=== PATIENT | female | born 1980 | race Caucasian/White ===

== ENCOUNTER 2022-12-21 09:02 | Emergency (ER) | payer OTHER, SELFPAY ==
[2022-12-21 09:10] VITALS: BP 137/86; PULSE 63; RESP 18; TEMP 36.5; O2SAT 100
--- NOTE | 2022-12-21 09:10 | ED.URI ---
HPI - URI/Sore Throat General Chief Complaint: Upper Respiratory Infection Stated Complaint: cough/sore throat/chest/lira Time Seen by Provider: 12/21/22 09:10 Source: patient and RN notes reviewed History of Present Illness HPI Narrative: Patient is a 42-year-old female presents to urgent care with complaints of cough, sore throat, chest congestion headache. Patient states that her symptoms started on Sunday without fever, nausea or vomiting. Patient has been taking Excedrin for her symptoms. Denies any known ill exposures. No other acute complaints. No acute distress noted. Patient aware of the plan of care. Some parts of this dictation were generated by voice recognition software and may contain typographical and/or grammatical inaccuracies. Related Data Home Medications Medication Instructions Recorded Confirmed fluticasone propionate 50 1 spray intranasal DAILY 12/21/22 12/21/22 mcg/actuation nasal spray,suspension loratadine 10 mg tablet (Claritin) 10 mg PO DAILY 12/21/22 12/21/22 losartan 100 1 tablet PO DIRECTED 12/21/22 12/21/22 mg-hydrochlorothiazide 25 mg tablet Allergies Allergy/AdvReac Type Severity Reaction Status Date / Time No Known Allergies Allergy Verified 12/21/22 09:18 Review of Systems Review of Systems: CONSTITUTIONAL: Denies fever, chills, or sweats. EYES: Denies visual changes, redness, or discharge. ENT: Reports of congestion, sore throat, postnasal drainage CARDIOVASCULAR: Denies chest pain, palpitations, or edema. RESPIRATORY: Reports cough without dyspnea GASTROINTESTINAL: Denies abdominal pain, nausea, vomiting, or diarrhea. GENITOURINARY: Denies dysuria or hematuria. SKIN: Denies rash or itching. MUSCULOSKELETAL: Denies back pain, joint pain, or myalgia. NEUROLOGIC: Reports of headache All other systems reviewed are negative, except as documented in HPI. PMFSH Comments At the time of my signature, I reviewed and agree with the nursing past medical, surgical, social, and family history. There is no relevant family history pertinent to the patient complaint. Exam Narrative: GENERAL: This is a well-nourished, well-developed patient, in no apparent distress. HEAD: normocephalic, atraumatic. Reported frontal sinus tenderness EYES: PERRL. Sclera clear/white. Vision is grossly intact. EARS: External ears normal, auditory canals clear and without drainage, TMs normal without perforation. Hearing grossly intact. NOSE: External nose normal with no obvious nasal discharge, nares without redness, no rhinorrhea. THROAT: Mucous membranes moist, posterior pharynx clear. Moderate postnasal drainage NECK: Neck supple, non-tender without lymphadenopathy, masses or thyromegaly. CARDIOVASCULAR: Regular rate and rhythm without murmurs, gallops, or rubs. RESPIRATORY: Clear to auscultation. Breath sounds equal bilaterally. No wheezes, rales, or rhonchi. SKIN: warm, intact with no suspicious lesions or rash, good texture and turgor. NEURO: awake, alert, and oriented to person, place and time. There were no obvious focal neurologic abnormalities. EXTREMITIES: No clubbing, cyanosis, or edema. Course Course Level of Care: Express Care Visit Vital Signs Vital signs: Vital Signs Temperature 97.7 F 12/21/22 09:10 Pulse Rate 63 12/21/22 09:10 Respiratory Rate 18 12/21/22 09:10 Blood Pressure 137/86 12/21/22 09:10 Pulse Oximetry 100 12/21/22 09:10 Oxygen Delivery Room Air 12/21/22 09:10 Temperature 97.7 F 12/21/22 09:10 Pulse Rate 63 12/21/22 09:10 Respiratory Rate 18 12/21/22 09:10 Blood Pressure 137/86 12/21/22 09:10 Pulse Oximetry 100 12/21/22 09:10 Oxygen Delivery Room Air 12/21/22 09:10 Reviewed MDM - URI/Sore Throat MDM Narrative Medical decision making narrative: Reviewed lab results with the patient. She is aware that strep swab was negative. Educated patient on culture we will call within 72 hours if culture is positive antibio
== END 2022-12-21 09:56 | disposition home or self-care (01) ==
PROVIDERS: Emergency Provider Nurse Practitioner Family; PCP Internal Medicine
DX: B34.9 Viral infection, unspecified (principal)
CPT/HCPCS: 87081; 87880; 99213; G0463